=== PATIENT | male | born 1985 | race Caucasian/White ===

== ENCOUNTER 2017-03-27 08:07 | Emergency (ER) | payer SELFPAY ==
[~2017-03-27 08:07] MED LIST: FLEXERIL10 MG PO; MEDI-MECLIZINE25 M1 PO; NO MEDICATIONS; VISTARIL PO; VOLTAREN75 MG PO
== END 2017-03-27 09:01 | disposition home or self-care (01) ==
LOC: SED 08:07
DX: H61.22 Impacted cerumen, left ear (principal); F17.210 Nicotine dependence, cigarettes, uncomplicated
CPT/HCPCS: 99282